=== PATIENT | male | born 1945 | race Caucasian/White ===

== ENCOUNTER 2016-12-01 13:46 | Emergency (ER) | payer MEDICARE, OTHER ==
[~2016-12-01 13:46] MED LIST: ACETAMINOPHEN325 MG PO; ASPIRIN CHEWABL81 MG PO; BUMEX1 MG PO; CEFDINIR300 MG PO; COLACE100 MG PO; COREG12.5 MG PO; DITROPAN5 MG PO; FLEET ENEMA133 ML PR; FLOMAX 0.4 MG0.4 MG PO; GLIPIZIDE 5 MG (5 MG PO; HUMULIN R100 UNIT/1 SQ; K-DUR20 MEQ PO; LACTINEX1 EACH PO; LAXATIVE SUPPOS10 MG PR; LIPITOR80 MG PO; MILK OF MA400 MG/5 M PO; MYLANTA PO; NEURONTIN100 M1 PO; NEURONTIN300 MG PO; NORCO 5-325 TA1 EACH PO; PLAVIX75 MG PO; PRILOSEC20 MG PO; PROTONIX 40MG T40 MG PO; XARELTO20 MG PO
[2016-12-01 15:24] LABS: BILIRUBIN NEGATIVE (NEGATIVE); BLOOD 3+ Ery/uL (NEGATIVE); CLARITY CLOUDY (CLEAR); COLOR RED (YELLOW); GLUCOSE (U) TRACE mg/dL (NORMAL); KETONE (U) 1+ (SMALL) mg/dL (NEGATIVE); LEUKOCYTES 2+ Leu/uL (NEGATIVE); NITRITE POSITIVE (NEGATIVE); PROTEIN 3+ mg/dL (NEGATIVE); SPECIFIC GRAVITY 1.015 (1.001-1.030); pH 6.5 (5.0-9.0)
[2016-12-01 15:27] LABS: BASOPHIL 0.2 % (0-2); EOSINOPHIL 1.6 % (0-7); HCT 31.1 % (42.0-52.0); HGB 9.9 g/dl (13.2-18.0); LYMPHOCYTE 6.7 % (15-48); MCH 27.3 pg (25.0-31.0); MCHC 31.8 g/dL (32.0-36.0); MCV 85.9 fL (78.0-100.0); MONOCYTE 5.3 % (0-12); MPV 9.9 fL (6.0-9.5); NEUTROPHIL 86.2 % (41-80); PLT 197 K/uL (150-400); RBC 3.62 M/uL (4.70-6.00); RDW 16.2 % (11.5-14.0)
[2016-12-01 15:37] LABS: PTT 44.5 SECONDS (23.2-31.4)
[2016-12-01 15:38] LABS: INR 3.46 (0.9-1.2)
[2016-12-01 15:44] LABS: ALBUMIN 3.7 g/dL (3.4-4.8); BILIRUBIN - TOTAL 0.4 mg/dL (0.1-1.0); CREATININE 1.2 mg/dL (0.7-1.2); GLOBULIN (CALCULATION) 3.2 g/dL (2.2-4.2); POTASSIUM 3.7 mmol/L (3.5-5.1); TOTAL PROTEIN 6.9 g/dL (6.4-8.3)
== END 2016-12-01 22:34 | disposition other institution (70) ==
LOC: FER 13:46
PROVIDERS: Emergency Medicine
DX: N39.0 Urinary tract infection, site not specified (principal); R31.9 Hematuria, unspecified; K59.00 Constipation, unspecified; J90 Pleural effusion, not elsewhere classified; K83.8 Other specified diseases of biliary tract; Z79.1 Long term (current) use of non-steroidal anti-inflammatories (NSAID); Z86.73 Personal history of transient ischemic attack (TIA), and cerebral infarction without residual deficits
CPT/HCPCS: 36415; 80053; 81003; 85025; 85610; 85730; J2270; J2405

== ENCOUNTER 2016-12-15 18:54 | Day surgery (SDCO) | payer MEDICARE, OTHER ==
[~2016-12-15] VITALS: Ht 172.7 cm; Wt 81.2 kg
[2016-12-15 21:36] LABS: BASOPHIL 0.2 % (0-2); EOSINOPHIL 4.2 % (0-7); HGB 8.7 g/dl (13.2-18.0); LYMPHOCYTE 14.4 % (15-48); MCH 26.4 pg (25.0-31.0); MCHC 31.1 g/dL (32.0-36.0); MCV 85.1 fL (78.0-100.0); MONOCYTE 7.9 % (0-12); MPV 9.6 fL (6.0-9.5); NEUTROPHIL 73.3 % (41-80); PLT 199 K/uL (150-400); RBC 3.29 M/uL (4.70-6.00); RDW 15.6 % (11.5-14.0); WBC 8.9 K/uL (4.0-10.5)
[2016-12-15 21:46] LABS: INR 1.8 (0.9-1.2); PROTHROMBIN TIME 20.3 SECONDS (11.7-14.0); PTT 44.5 SECONDS (23.2-31.4)
[2016-12-15 21:51] LABS: ALBUMIN 3.8 g/dL (3.4-4.8); BILIRUBIN - TOTAL 0.3 mg/dL (0.1-1.0); GLOBULIN (CALCULATION) 3.1 g/dL (2.2-4.2); MAGNESIUM 2.09 mg/dL (1.40-2.10); POTASSIUM 4.1 mmol/L (3.5-5.1); TOTAL PROTEIN 6.9 g/dL (6.4-8.3)
[2016-12-15 21:59] LABS: CKMB 1.94 ng/mL (0.97-4.94); TROPONIN T 0.035 ng/mL
[2016-12-15 22:00] LABS: FT4 (FREE T4) 1.63 ng/dL (0.93-1.70); TSH (THYROID STIM HORMONE) 0.708 uIU/mL (0.270-4.200)
[2016-12-15 22:53] LABS: BILIRUBIN NEGATIVE (NEGATIVE); BLOOD 3+ Ery/uL (NEGATIVE); COLOR YELLOW (YELLOW); GLUCOSE (U) NORMAL (NORMAL); KETONE (U) NEGATIVE (NEGATIVE); LEUKOCYTES 3+ Leu/uL (NEGATIVE); NITRITE NEGATIVE (NEGATIVE); PROTEIN 2+ mg/dL (NEGATIVE); UROBILINOGEN 0.2 mg/dL (0.2-1.0)
[2016-12-15 22:55] LABS: CLARITY HAZY (CLEAR)
[2016-12-15 22:57] LABS: BACTERIA 1+; SQUAMOUS EPITHELIAL CELLS RARE; URINARY WBC 20-50
[2016-12-16 05:49] LABS: CKMB 2.23 ng/mL (0.97-4.94); TROPONIN T 0.057 ng/mL
[2016-12-16 06:08] LABS: FOLIC ACID (SERUM) 14.5 ng/mL (5.6-45.8)
[2016-12-16 11:39] LABS: CKMB 2.22 ng/mL (0.97-4.94); TROPONIN T 0.045 ng/mL
== END 2016-12-17 13:46 | disposition home health service (06) ==
LOC: FER 18:54 → FTCU 12-16 02:15
PROVIDERS: Emergency Medicine Emergency Medical Services; Nurse Practitioner; ADMIT Internal Medicine
DX: I11.0 Hypertensive heart disease with heart failure (principal); I50.22 Chronic systolic (congestive) heart failure; N30.00 Acute cystitis without hematuria; I48.2 Chronic atrial fibrillation; I25.10 Atherosclerotic heart disease of native coronary artery without angina pectoris; I38 Endocarditis, valve unspecified; I69.922 Dysarthria following unspecified cerebrovascular disease; D50.9 Iron deficiency anemia, unspecified; E11.9 Type 2 diabetes mellitus without complications; E78.5 Hyperlipidemia, unspecified; E03.9 Hypothyroidism, unspecified; J90 Pleural effusion, not elsewhere classified; N40.0 Benign prostatic hyperplasia without lower urinary tract symptoms; Z87.891 Personal history of nicotine dependence; Z87.01 Personal history of pneumonia (recurrent); Z95.1 Presence of aortocoronary bypass graft; Z95.0 Presence of cardiac pacemaker; Z95.810 Presence of automatic (implantable) cardiac defibrillator; Z90.49 Acquired absence of other specified parts of digestive tract; Z79.82 Long term (current) use of aspirin; Z79.899 Other long term (current) drug therapy; Z98.890 Other specified postprocedural states
CPT/HCPCS: 36415; 70450; 71010; 71275; 73564; 80053; 81001; 82550; 82553; 82607; 82728; 82746; 82962; 83540; 83735; 83874; 83880; 84439; 84443; 84484; 85025; 85610; 85730; 87040; 87077; 87088; 87186; 93005; 96374; 97116; 97163; 97167; 97530; 97535; G0378; J1940; J2916; Q9967

== ENCOUNTER 2016-12-25 11:43 | Emergency (ER) | payer MEDICARE, OTHER ==
[2016-12-25 12:56] LABS: BASOPHIL 0.2 % (0-2); EOSINOPHIL 4.1 % (0-7); HCT 29.9 % (42.0-52.0); HGB 9.1 g/dl (13.2-18.0); LYMPHOCYTE 6.8 % (15-48); MCH 26.1 pg (25.0-31.0); MCHC 30.4 g/dL (32.0-36.0); MCV 85.9 fL (78.0-100.0); MONOCYTE 0.7 % (0-12); MPV 10.4 fL (6.0-9.5); NEUTROPHIL 88.2 % (41-80); PLT 150 K/uL (150-400); RBC 3.48 M/uL (4.70-6.00); RDW 16.6 % (11.5-14.0); WBC 4.1 K/uL (4.0-10.5)
[2016-12-25 13:08] LABS: LACTIC ACID 3.7 mmol/L (0.5-2.2)
[2016-12-25 13:11] LABS: ALBUMIN 3.9 g/dL (3.4-4.8); BILIRUBIN - TOTAL 0.5 mg/dL (0.1-1.0); CREATININE 1.2 mg/dL (0.7-1.2); GLOBULIN (CALCULATION) 2.7 g/dL (2.2-4.2); POTASSIUM 4.8 mmol/L (3.5-5.1); TOTAL PROTEIN 6.6 g/dL (6.4-8.3)
[2016-12-25 14:39] LABS: BILIRUBIN NEGATIVE (NEGATIVE); BLOOD 3+ Ery/uL (NEGATIVE); CLARITY HAZY (CLEAR); COLOR YELLOW (YELLOW); GLUCOSE (U) NORMAL (NORMAL); KETONE (U) NEGATIVE (NEGATIVE); LEUKOCYTES 3+ Leu/uL (NEGATIVE); NITRITE NEGATIVE (NEGATIVE); PROTEIN TRACE (LOW) mg/dL (NEGATIVE); UROBILINOGEN 0.2 mg/dL (0.2-1.0); pH 5.5 (5.0-9.0)
[2016-12-25 15:08] LABS: BACTERIA 3+; URINARY RBC TNTC; URINARY WBC TNTC
[2016-12-25 15:09] LABS: RENAL EPITHELIAL CELLS RARE; SQUAMOUS EPITHELIAL CELLS RARE
== END 2016-12-25 16:40 | disposition home or self-care (01) ==
LOC: FER 11:43
PROVIDERS: Internal Medicine
DX: N39.0 Urinary tract infection, site not specified (principal); J90 Pleural effusion, not elsewhere classified; J98.11 Atelectasis; Z86.73 Personal history of transient ischemic attack (TIA), and cerebral infarction without residual deficits; Z90.49 Acquired absence of other specified parts of digestive tract
CPT/HCPCS: 36415; 36600; 71010; 80053; 81001; 82150; 82803; 83605; 83690; 85025; 87040; 93005; J2543

== ENCOUNTER 2020-08-06 10:43 | Inpatient (IN) | payer MEDICARE, OTHER ==
[~2020-08-06 10:43] MED LIST changes: +AUGMENTIN250 MG PO; +BACITRACIN15 GM TOP; +BACLOFEN 10MG T10 MG PO; +BACTRIM DS TAB1 EACH PO; +CIPRO500 MG PO; +COZAAR50 MG PO; +FEOSOL325 MG PO; +FLEXERIL5 MG PO; +FLOMAX0.4 MG PO; +FUROSEMIDE 40MG40 MG PO; +GLUCOTROL5 MG PO; +KEFLEX250 MG PO; +LIPITOR40 MG PO; +MACROBID100 MG PO; +MELATONIN5 M2 PO; +NEURONTIN400 MG PO; +RESTORIL15 MG PO; +TAMSULOSIN HCL0.4 MG PO; +TRAZODONE 100M100 MG PO
[2020-08-06 11:28] LABS: BASOPHIL 0.7 % (0-2); EOSINOPHIL 2.6 % (0-7); HCT 39.5 % (42.0-52.0); HGB 12.5 g/dl (13.2-18.0); LYMPHOCYTE 15.5 % (15-48); MCH 29.8 pg (25.0-31.0); MCHC 31.6 g/dL (32.0-36.0); MONOCYTE 10.7 % (0-12); MPV 10.1 fL (6.0-9.5); NEUTROPHIL 70.1 % (41-80); NRBC 0; PLT 156 K/uL (150-400); RDW 12.5 % (11.5-14.0); WBC 7.2 K/uL (4.0-10.5)
[2020-08-06 11:30] LABS: BILIRUBIN NEGATIVE (NEGATIVE); BLOOD 3+ Ery/uL (NEGATIVE); CLARITY HAZY (CLEAR); COLOR YELLOW (YELLOW); GLUCOSE (U) TRACE mg/dL (NORMAL); LEUKOCYTES 3+ Leu/uL (NEGATIVE); NITRITE NEGATIVE (NEGATIVE); PROTEIN 2+ mg/dL (NEGATIVE); UROBILINOGEN 0.2 mg/dL (0.2-1.0)
[2020-08-06 11:43] LABS: URINARY RBC TNTC; URINARY WBC 20-50
[2020-08-06 11:44] LABS: BACTERIA TRACE
[2020-08-06 11:47] LABS: INR 2.1 (0.9-1.2); PROTHROMBIN TIME 22.4 SECONDS (11.4-13.6); PTT 45.6 SECONDS (22.2-34.7)
[2020-08-06 11:48] LABS: ALBUMIN 3.4 g/dL (3.4-5.0); BILIRUBIN - TOTAL 0.4 mg/dL (0.2-1.0); BUN/CREAT RATIO (CALC) 14.9 RATIO; CREATININE 0.87 mg/dL (0.67-1.17); GLOBULIN (CALCULATION) 2.9 g/dL; POTASSIUM 4.4 mmol/L (3.5-5.1); TOTAL PROTEIN 6.3 g/dL (6.4-8.2)
[2020-08-06 11:55] LABS: LACTIC ACID 1.3 mmol/L (0.4-1.9)
[2020-08-06 12:30] LABS: CORONAVIRUS 2019 SARS-COV-2 NEGATIVE (NEGATIVE); INFLUENZA A NAA NEGATIVE (NEGATIVE)
[2020-08-06] MEDS ORDERED: LASIX40 MG PO (15:18)
[2020-08-06] MEDS ORDERED: GLIPIZIDE5 MG PO ×2 (15:20→15:28)
[2020-08-06] MEDS ORDERED: CARVEDILOL12.5 MG PO (15:22)
[2020-08-06] MEDS ORDERED: COZAAR50 MG PO (15:23)
[2020-08-06] MEDS ORDERED: GABAPENTIN400 MG PO ×2 (15:25→15:26)
[2020-08-06] MEDS ORDERED: RESTORIL15 MG PO (15:27)
[2020-08-06] MEDS ORDERED: XARELTO10 MG PO (15:27)
[2020-08-06] MEDS ORDERED: BACLOFEN 10MG T10 MG PO (15:27)
[2020-08-06] MEDS ORDERED: LIPITOR40 MG PO (15:28)
[2020-08-06] MEDS ORDERED: FEOSOL325 M1 PO (15:31)
[2020-08-06] MEDS ORDERED: METAMUCIL1 DOSE PO (15:40)
[2020-08-06] MEDS ORDERED: MYRBETRIQ25 MG PO (15:44)
[2020-08-06 19:45] LABS: RETICULOCYTE COUNT 1.1 % (1.0-2.0)
[2020-08-06 19:58] LABS: IRON % SATURATION 17.9 %SAT (20-50)
[2020-08-06 20:25] LABS: FOLIC ACID (SERUM) 17.1 ng/mL (8.6-58.9)
[2020-08-07 07:03] LABS: BASOPHIL 0.2 % (0-2); EOSINOPHIL 0 % (0-7); HCT 37.3 % (42.0-52.0); HGB 11.9 g/dl (13.2-18.0); LYMPHOCYTE 11.2 % (15-48); MCH 29.7 pg (25.0-31.0); MCHC 31.9 g/dL (32.0-36.0); MONOCYTE 1.6 % (0-12); MPV 10.1 fL (6.0-9.5); NEUTROPHIL 86.5 % (41-80); NRBC 0; PLT 144 K/uL (150-400); RBC 4.01 M/uL (4.70-6.00); RDW 12.4 % (11.5-14.0); WBC 5.5 K/uL (4.0-10.5)
[2020-08-07 07:20] LABS: BUN/CREAT RATIO (CALC) 14.6 RATIO; CREATININE 0.89 mg/dL (0.67-1.17); PHOSPHORUS 3.2 mg/dL (2.6-4.7); POTASSIUM 4.5 mmol/L (3.5-5.1)
--- NOTE | 2020-08-07 16:24 | NUR ---
PT REPORTS HE LIVES ALONE AND HAS CAREGIVERS THAT COME 2X A DAY TO HELP HIM: HE REPORTS HE HAS [employer] AT HOME. FOR DME: HE HAS [employer] AND W/C AND SHOWER CHAIR. PT SAYS ONCE HE IS DISCHARGED HOME HE WILL BE PICKED UP BY HIS SON DAVE PANTOJA [phone] OR TINO PANTOAJ CHULA [phone]. CHOICE LETTER GIVEN HE WANTS CONTINUED HOME HEALTH WITH [facility] WHOM HE IS CURRENT WITH.
[2020-08-08 06:32] LABS: BASOPHIL 0.8 % (0-2); EOSINOPHIL 1.5 % (0-7); HCT 38.4 % (42.0-52.0); HGB 12.1 g/dl (13.2-18.0); LYMPHOCYTE 28.4 % (15-48); MCH 29.9 pg (25.0-31.0); MCHC 31.5 g/dL (32.0-36.0); MCV 94.8 fL (78.0-100.0); MONOCYTE 9.2 % (0-12); NEUTROPHIL 59.6 % (41-80); NRBC 0; PLT 164 K/uL (150-400); RBC 4.05 M/uL (4.70-6.00); RDW 12.8 % (11.5-14.0); WBC 7.5 K/uL (4.0-10.5)
[2020-08-08 06:55] LABS: CREATININE 1.07 mg/dL (0.67-1.17); MAGNESIUM 2.1 mg/dL (1.8-2.4); PHOSPHORUS 3.2 mg/dL (2.6-4.7); POTASSIUM 4.5 mmol/L (3.5-5.1)
--- NOTE | 2020-08-08 09:08 | NUR ---
GLUCOSE RECHECKED AFTER LAB OF GLU 48, IT IS NOW 183
--- NOTE | 2020-08-08 21:40 | NUR ---
Y1940 FSBG 52. PT ENCOURAGED TO EAT. PT ATE HAM SANDWICH, 240ML OF APPLE JUICE AND ORANGE SHERBET. FSBG 91 AT 2030.
[2020-08-09 02:55] LABS: BILIRUBIN NEGATIVE (NEGATIVE); BLOOD 3+ Ery/uL (NEGATIVE); CLARITY CLEAR (CLEAR); COLOR YELLOW (YELLOW); GLUCOSE (U) NORMAL (NORMAL); LEUKOCYTES 3+ Leu/uL (NEGATIVE); NITRITE NEGATIVE (NEGATIVE); PROTEIN NEGATIVE (NEGATIVE); UROBILINOGEN 0.2 mg/dL (0.2-1.0); pH 5.5 (5.0-9.0)
[2020-08-09 03:10] LABS: BACTERIA TRACE
[2020-08-09 03:11] LABS: MUCOUS TRACE; SQUAMOUS EPITHELIAL CELLS RARE
[2020-08-09] MEDS ORDERED: CEFDINIR300 MG PO ×2 (12:17→13:50)
--- NOTE | 2020-08-09 12:22 | NUR ---
S/W BERE VIA TELEPHONE WITH [employer] AND NOTIFIY HER THAT PT IS BEING D/C'D
== END 2020-08-09 13:10 | disposition home health service (06) | DRG 698 ==
LOC: FER 10:43 → FMS 13:59
PROVIDERS: Emergency Medicine; ADMIT Internal Medicine
DX: T83.518A Infection and inflammatory reaction due to other urinary catheter, initial encounter (principal); J18.9 Pneumonia, unspecified organism; N30.00 Acute cystitis without hematuria; I48.20 Chronic atrial fibrillation, unspecified; I50.42 Chronic combined systolic (congestive) and diastolic (congestive) heart failure; I69.351 Hemiplegia and hemiparesis following cerebral infarction affecting right dominant side; Y84.6 Urinary catheterization as the cause of abnormal reaction of the patient, or of later complication, without mention of misadventure at the time of the procedure; E11.649 Type 2 diabetes mellitus with hypoglycemia without coma; D50.9 Iron deficiency anemia, unspecified; I11.0 Hypertensive heart disease with heart failure; I25.5 Ischemic cardiomyopathy; Z20.822 Contact with and (suspected) exposure to COVID-19; E78.5 Hyperlipidemia, unspecified; I25.10 Atherosclerotic heart disease of native coronary artery without angina pectoris; N40.0 Benign prostatic hyperplasia without lower urinary tract symptoms; Z95.2 Presence of prosthetic heart valve; Z79.01 Long term (current) use of anticoagulants; Z95.0 Presence of cardiac pacemaker; Z88.2 Allergy status to sulfonamides
CPT/HCPCS: 36415; 70450; 71045; 80048; 80053; 81001; 82607; 82728; 82746; 83540; 83550; 83605; 83735; 83880; 84100; 84145; 84484; 85025; 85610; 85730; 87040; 87088; 94640; 94667; 94668; 97162; 97166; 97530-GP; 97535; J0456; J0696; J2930; J7030; J7040; J7050; U0002

== ENCOUNTER 2020-09-27 20:41 | Emergency (ER) | payer MEDICARE, OTHER ==
[~2020-09-27 20:41] MED LIST changes: +CARVEDILOL12.5 MG PO; +FEOSOL325 M1 PO; +GABAPENTIN400 MG PO; +GLIPIZIDE5 MG PO; +LASIX40 MG PO; +METAMUCIL1 DOSE PO; +MYRBETRIQ25 MG PO; +XARELTO10 MG PO
== END 2020-09-28 00:25 | disposition home or self-care (01) ==
LOC: FER 20:41
DX: M25.552 Pain in left hip (principal); M54.5 Low back pain; M25.551 Pain in right hip; E11.9 Type 2 diabetes mellitus without complications; E78.5 Hyperlipidemia, unspecified; I11.0 Hypertensive heart disease with heart failure; I50.9 Heart failure, unspecified; G20 Parkinson's disease; Z86.73 Personal history of transient ischemic attack (TIA), and cerebral infarction without residual deficits; Z79.899 Other long term (current) drug therapy; Z79.01 Long term (current) use of anticoagulants; W19.XXXA Unspecified fall, initial encounter; Y92.009 Unspecified place in unspecified non-institutional (private) residence as the place of occurrence of the external cause
CPT/HCPCS: 72110; 93005

== ENCOUNTER 2021-04-26 17:19 | Emergency (ER) | payer MEDICARE, OTHER ==
[2021-04-26 18:17] LABS: BILIRUBIN NEGATIVE (NEGATIVE); BLOOD 2+ Ery/uL (NEGATIVE); CLARITY CLEAR (CLEAR); COLOR YELLOW (YELLOW); GLUCOSE (U) NORMAL (NORMAL); LEUKOCYTES 2+ Leu/uL (NEGATIVE); NITRITE NEGATIVE (NEGATIVE); PROTEIN NEGATIVE (NEGATIVE); UROBILINOGEN 0.2 mg/dL (0.2-1.0)
[2021-04-26 18:25] LABS: BACTERIA 2+
[2021-04-26] MEDS ORDERED: MACROBID100 MG PO (18:31)
== END 2021-04-26 19:00 | disposition home or self-care (01) ==
LOC: FER 17:19
PROVIDERS: Nurse Practitioner Family
DX: T83.018A Breakdown (mechanical) of other urinary catheter, initial encounter (principal); N39.0 Urinary tract infection, site not specified; E11.9 Type 2 diabetes mellitus without complications; I25.2 Old myocardial infarction; I10 Essential (primary) hypertension; Z86.73 Personal history of transient ischemic attack (TIA), and cerebral infarction without residual deficits
CPT/HCPCS: 81001; 87076; 87088; 87186

== ENCOUNTER 2021-05-09 10:42 | Emergency (ER) | payer MEDICARE, OTHER | END 2021-05-09 12:32 | disposition home or self-care (01) | LOC: FER 10:42 | DX: S42.035A Nondisplaced fracture of lateral end of left clavicle, initial encounter for closed fracture (principal); M19.012 Primary osteoarthritis, left shoulder; Z88.2 Allergy status to sulfonamides; W18.30XA Fall on same level, unspecified, initial encounter; Y92.009 Unspecified place in unspecified non-institutional (private) residence as the place of occurrence of the external cause | CPT/HCPCS: 73030; 73060 ==

== ENCOUNTER 2021-05-17 15:57 | Day surgery (SDCO) | payer MEDICARE, OTHER ==
[~2021-05-17] VITALS: Ht 172.7 cm; Wt 78.6 kg
[2021-05-17 17:28] LABS: BASOPHIL 0.4 % (0-2); EOSINOPHIL 3.5 % (0-7); HGB 12.5 g/dl (13.2-18.0); LYMPHOCYTE 21.7 % (15-48); MCH 28.6 pg (25.0-31.0); MCHC 32.1 g/dL (32.0-36.0); MCV 89.2 fL (78.0-100.0); MONOCYTE 10.3 % (0-12); MPV 10.7 fL (6.0-9.5); NEUTROPHIL 63.8 % (41-80); NRBC 0; PLT 157 K/uL (150-400); RBC 4.37 M/uL (4.70-6.00); RDW 13.2 % (11.5-14.0); WBC 7.2 K/uL (4.0-10.5)
[2021-05-17 17:28] LABS: BILIRUBIN NEGATIVE (NEGATIVE); BLOOD 3+ Ery/uL (NEGATIVE); COLOR YELLOW (YELLOW); GLUCOSE (U) NORMAL (NORMAL); LEUKOCYTES 3+ Leu/uL (NEGATIVE); NITRITE NEGATIVE (NEGATIVE); PROTEIN 1+ mg/dL (NEGATIVE); SPECIFIC GRAVITY 1.015 (1.001-1.030); UROBILINOGEN 0.2 mg/dL (0.2-1.0)
[2021-05-17 17:40] LABS: CLARITY HAZY (CLEAR)
[2021-05-17 17:41] LABS: BACTERIA 3+; RENAL EPITHELIAL CELLS RARE; URINARY RBC 20-50; URINARY WBC 20-50
[2021-05-17 17:44] LABS: ALBUMIN 3.4 g/dL (3.4-5.0); BILIRUBIN - TOTAL 0.4 mg/dL (0.2-1.0); BUN/CREAT RATIO (CALC) 16.7 RATIO; CREATININE 0.9 mg/dL (0.67-1.17); GLOBULIN (CALCULATION) 3.4 g/dL; POTASSIUM 4.2 mmol/L (3.5-5.1); TOTAL PROTEIN 6.8 g/dL (6.4-8.2)
[2021-05-17] MEDS ORDERED: IRON325 M1 PO (21:04)
[2021-05-17] MEDS ORDERED: NEURONTIN400 MG PO (21:12)
[2021-05-18 06:59] LABS: BASOPHIL 0.4 % (0-2); HGB 11.3 g/dl (13.2-18.0); LYMPHOCYTE 26.3 % (15-48); MCHC 32.3 g/dL (32.0-36.0); MPV 9.9 fL (6.0-9.5); NRBC 0; PLT 132 K/uL (150-400); RBC 3.89 M/uL (4.70-6.00); RDW 13.4 % (11.5-14.0); WBC 6.9 K/uL (4.0-10.5)
[2021-05-18 07:19] LABS: BUN/CREAT RATIO (CALC) 16.1 RATIO; CREATININE 0.93 mg/dL (0.67-1.17); POTASSIUM 3.9 mmol/L (3.5-5.1)
--- NOTE | 2021-05-18 15:03 | NUR ---
TC TO SON, DAVE, WHO IS ALSO POA. DAVE WANTS HIS FATHER TO GO TO [facility]. SENT REFERRAL TO [facility].
[2021-05-19 07:12] LABS: BASOPHIL 0.3 % (0-2); EOSINOPHIL 3.8 % (0-7); HCT 38.8 % (42.0-52.0); HGB 12.3 g/dl (13.2-18.0); LYMPHOCYTE 20.9 % (15-48); MCH 29.1 pg (25.0-31.0); MCHC 31.7 g/dL (32.0-36.0); MCV 91.7 fL (78.0-100.0); MONOCYTE 10.4 % (0-12); MPV 9.9 fL (6.0-9.5); NEUTROPHIL 64.3 % (41-80); NRBC 0; PLT 138 K/uL (150-400); RBC 4.23 M/uL (4.70-6.00); RDW 13.3 % (11.5-14.0)
[2021-05-19 07:58] LABS: ALBUMIN 3.2 g/dL (3.4-5.0); BILIRUBIN - TOTAL 0.3 mg/dL (0.2-1.0); BUN/CREAT RATIO (CALC) 17.4 RATIO; CREATININE 0.92 mg/dL (0.67-1.17); GLOBULIN (CALCULATION) 3.2 g/dL; POTASSIUM 4.4 mmol/L (3.5-5.1); TOTAL PROTEIN 6.4 g/dL (6.4-8.2)
[2021-05-19] MEDS ORDERED: LACTOBACILLUS1 EACH PO (10:42)
[2021-05-19] MEDS ORDERED: KEFLEX250 MG PO (10:42)
--- NOTE | 2021-05-19 11:26 | NUR ---
GUST[facility]O WITH [facility] NOTIFIED ME THAT PT HAS BEEN ACCEPTED. ADVISED HE HAS HIS COVID VACCINE OF X-BOLT [facility] ON 12/18/2020.
--- NOTE | 2021-05-19 14:34 | NUR ---
SPOKE WITH PT. HE IS IN AGREEMENT TO GO TO [facility]. I ADVISED HIM THAT HIS CAREGIVER, VALERIE, WOULD BE OVER TO THE FACILITY TO VISIT WITH HIM AND BRING HIS LAPTOP. PT. ACKNOWLEDGED UNDERSTANDING.
--- NOTE | 2021-05-19 17:01 | NUR ---
TC TO SON, AND DAVE GALEANO. ADVISED THAT HIS FATHER HAS BEEN ACCEPTED AT [facility]. ALSO ADVISED HIM OF VISITING HOURS AND THAT HIS CAREGIVER, MARILYN WOULD BE TAKING HIS LAPTOP TO HIM. SON WAS APPRECIATIVE OF CALL.
[2021-05-19] MEDS ORDERED: GABAPENTIN400 MG PO (17:49)
== END 2021-05-19 18:06 ==
LOC: FER 15:57 → FMS 19:24
PROVIDERS: Internal Medicine; Nurse Practitioner; ADMIT Allergy & Immunology
DX: N39.0 Urinary tract infection, site not specified (principal); I11.0 Hypertensive heart disease with heart failure; I50.22 Chronic systolic (congestive) heart failure; E11.40 Type 2 diabetes mellitus with diabetic neuropathy, unspecified; I48.91 Unspecified atrial fibrillation; I25.5 Ischemic cardiomyopathy; I25.10 Atherosclerotic heart disease of native coronary artery without angina pectoris; J44.9 Chronic obstructive pulmonary disease, unspecified; I69.391 Dysphagia following cerebral infarction; R13.10 Dysphagia, unspecified; E78.5 Hyperlipidemia, unspecified; R29.6 Repeated falls; M19.90 Unspecified osteoarthritis, unspecified site; Z79.01 Long term (current) use of anticoagulants; Z79.84 Long term (current) use of oral hypoglycemic drugs; Z79.899 Other long term (current) drug therapy; Z20.822 Contact with and (suspected) exposure to COVID-19; Z95.810 Presence of automatic (implantable) cardiac defibrillator; Z90.49 Acquired absence of other specified parts of digestive tract
CPT/HCPCS: 36415; 80048; 80053; 81001; 82962; 83605; 83735; 85025; 94010; 97163; 97166; 97530-GP; 97535; G0378; J0696; J7030; U0002

== ENCOUNTER 2021-08-06 15:52 | Emergency (ER) | payer MEDICARE, OTHER ==
[~2021-08-06 15:52] MED LIST changes: +IRON325 M1 PO; +LACTOBACILLUS1 EACH PO
[2021-08-06 18:10] LABS: BILIRUBIN NEGATIVE (NEGATIVE); BLOOD 2+ Ery/uL (NEGATIVE); CLARITY CLEAR (CLEAR); COLOR YELLOW (YELLOW); GLUCOSE (U) NORMAL (NORMAL); LEUKOCYTES 1+ Leu/uL (NEGATIVE); NITRITE POSITIVE (NEGATIVE); PROTEIN NEGATIVE (NEGATIVE); UROBILINOGEN 0.2 mg/dL (0.2-1.0)
[2021-08-06 18:20] LABS: BACTERIA 3+
[2021-08-06 18:22] LABS: URINARY WBC RARE
== END 2021-08-06 18:19 | disposition home or self-care (01) ==
LOC: FER 15:52
PROVIDERS: Emergency Medicine
DX: T83.84XA Pain due to genitourinary prosthetic devices, implants and grafts, initial encounter (principal); Z88.2 Allergy status to sulfonamides; Y84.6 Urinary catheterization as the cause of abnormal reaction of the patient, or of later complication, without mention of misadventure at the time of the procedure; Y92.099 Unspecified place in other non-institutional residence as the place of occurrence of the external cause
CPT/HCPCS: 81001

== ENCOUNTER 2021-08-23 14:57 | Inpatient (IN) | payer MEDICARE, OTHER ==
[~2021-08-23] VITALS: Ht 172.7 cm; Wt 78.6 kg
[2021-08-23 15:48] LABS: BASOPHIL 0.5 % (0-2); EOSINOPHIL 1.9 % (0-7); HCT 40.2 % (42.0-52.0); HGB 13.3 g/dl (13.2-18.0); LYMPHOCYTE 20.7 % (15-48); MCH 29.8 pg (25.0-31.0); MCHC 33.1 g/dL (32.0-36.0); MCV 89.9 fL (78.0-100.0); MONOCYTE 11.1 % (0-12); MPV 10.6 fL (6.0-9.5); NEUTROPHIL 65.3 % (41-80); NRBC 0; PLT 136 K/uL (150-400); RBC 4.47 M/uL (4.70-6.00); RDW 13.2 % (11.5-14.0); WBC 7.9 K/uL (4.0-10.5)
[2021-08-23 15:58] LABS: INR 1.9 (0.9-1.2); PTT 34.5 SECONDS (24.4-34.7)
[2021-08-23 16:02] LABS: CREATININE 0.89 mg/dL (0.67-1.17); POTASSIUM 4.1 mmol/L (3.5-5.1)
[2021-08-23 17:30] LABS: BILIRUBIN NEGATIVE (NEGATIVE); BLOOD 1+ Ery/uL (NEGATIVE); CLARITY CLEAR (CLEAR); COLOR YELLOW (YELLOW); GLUCOSE (U) NORMAL (NORMAL); LEUKOCYTES 3+ Leu/uL (NEGATIVE); NITRITE POSITIVE (NEGATIVE); PROTEIN NEGATIVE (NEGATIVE); SPECIFIC GRAVITY 1.025 (1.001-1.030); UROBILINOGEN 0.2 mg/dL (0.2-1.0)
[2021-08-23 17:36] LABS: BACTERIA 3+; URINARY WBC TNTC
[2021-08-23 17:37] LABS: AMORPHOUS URATES CRYSTALS MODERATE; MUCOUS TRACE
[2021-08-23] MEDS ORDERED: NEURONTIN400 MG PO ×2 (19:23→19:26)
[2021-08-24 06:36] LABS: BASOPHIL 0.7 % (0-2); HGB 11.3 g/dl (13.2-18.0); LYMPHOCYTE 23.3 % (15-48); MCH 29.4 pg (25.0-31.0); MCHC 32.3 g/dL (32.0-36.0); MCV 90.9 fL (78.0-100.0); MONOCYTE 12.8 % (0-12); MPV 10.8 fL (6.0-9.5); NRBC 0; PLT 106 K/uL (150-400); RBC 3.85 M/uL (4.70-6.00); RDW 13.6 % (11.5-14.0); WBC 8.6 K/uL (4.0-10.5)
[2021-08-24 06:45] LABS: INR 3.01 (0.9-1.2); PROTHROMBIN TIME 30.2 SECONDS (11.8-13.4)
[2021-08-24 07:01] LABS: BUN/CREAT RATIO (CALC) 17.6 RATIO; CREATININE 1.02 mg/dL (0.67-1.17)
[2021-08-24] MEDS ORDERED: DITROPAN5 MG PO (12:07)
[2021-08-24] MEDS ORDERED: ASCORBIC ACID500 MG PO (12:10)
[2021-08-24] MEDS ORDERED: RESTORIL15 MG PO (12:10)
[2021-08-25 06:26] LABS: BASOPHIL 0.5 % (0-2); EOSINOPHIL 5.7 % (0-7); HCT 33.2 % (42.0-52.0); HGB 10.7 g/dl (13.2-18.0); LYMPHOCYTE 25.5 % (15-48); MCH 29.6 pg (25.0-31.0); MCHC 32.2 g/dL (32.0-36.0); MCV 91.7 fL (78.0-100.0); MONOCYTE 12.6 % (0-12); MPV 10.5 fL (6.0-9.5); NEUTROPHIL 55.5 % (41-80); NRBC 0; RBC 3.62 M/uL (4.70-6.00); RDW 13.4 % (11.5-14.0)
[2021-08-25 06:33] LABS: INR 3.69 (0.9-1.2); PROTHROMBIN TIME 35.5 SECONDS (11.8-13.4)
[2021-08-25 06:34] LABS: PTT 57.2 SECONDS (24.4-34.7)
[2021-08-25 06:39] LABS: BUN/CREAT RATIO (CALC) 15.6 RATIO; CREATININE 1.09 mg/dL (0.67-1.17); MAGNESIUM 1.7 mg/dL (1.8-2.4); POTASSIUM 4.3 mmol/L (3.5-5.1)
[2021-08-25 07:19] LABS: PLT 97 K/uL (150-400)
== END 2021-08-25 20:41 | disposition other institution (70) | DRG 536 ==
LOC: FER 14:57 → FMS 16:19
PROVIDERS: Internal Medicine; Nurse Practitioner; ADMIT Internal Medicine
DX: S72.125A Nondisplaced fracture of lesser trochanter of left femur, initial encounter for closed fracture (principal); T83.511A Infection and inflammatory reaction due to indwelling urethral catheter, initial encounter; I50.22 Chronic systolic (congestive) heart failure; I48.20 Chronic atrial fibrillation, unspecified; N30.00 Acute cystitis without hematuria; I69.354 Hemiplegia and hemiparesis following cerebral infarction affecting left non-dominant side; Z20.822 Contact with and (suspected) exposure to COVID-19; W01.0XXA Fall on same level from slipping, tripping and stumbling without subsequent striking against object, initial encounter; J44.9 Chronic obstructive pulmonary disease, unspecified; I11.0 Hypertensive heart disease with heart failure; I25.10 Atherosclerotic heart disease of native coronary artery without angina pectoris; R29.6 Repeated falls; E78.5 Hyperlipidemia, unspecified; I69.391 Dysphagia following cerebral infarction; R13.10 Dysphagia, unspecified; I25.5 Ischemic cardiomyopathy; E11.40 Type 2 diabetes mellitus with diabetic neuropathy, unspecified; M19.90 Unspecified osteoarthritis, unspecified site; Z95.810 Presence of automatic (implantable) cardiac defibrillator; Z95.1 Presence of aortocoronary bypass graft; Z90.79 Acquired absence of other genital organ(s); Z95.2 Presence of prosthetic heart valve; Z95.5 Presence of coronary angioplasty implant and graft; Z90.49 Acquired absence of other specified parts of digestive tract; Z88.2 Allergy status to sulfonamides; Z79.899 Other long term (current) drug therapy; Z79.01 Long term (current) use of anticoagulants; Z79.84 Long term (current) use of oral hypoglycemic drugs
CPT/HCPCS: 36415; 70450; 73502; 73700; 80048; 81001; 83735; 85025; 85610; 85730; 87088; 94010; G0378; J0696; J1170; U0002

== ENCOUNTER 2021-12-06 10:21 | Emergency (ER) | payer MEDICARE, OTHER ==
[~2021-12-06 10:21] MED LIST changes: +ASCORBIC ACID500 MG PO; +DULCOLAX STOOL100 MG PO; +FIBER PO; +MYSOLINE50 MG PO
[2021-12-06 11:54] LABS: BILIRUBIN 1+ mg/dL (NEGATIVE); BLOOD 3+ Ery/uL (NEGATIVE); GLUCOSE (U) TRACE mg/dL (NORMAL); LEUKOCYTES 3+ Leu/uL (NEGATIVE); NITRITE POSITIVE (NEGATIVE); PROTEIN 3+ mg/dL (NEGATIVE); UROBILINOGEN >=8.0 mg/dL (0.2-1.0); pH 6.5 (5.0-9.0)
[2021-12-06 12:00] LABS: CLARITY CLOUDY (CLEAR); COLOR RED (YELLOW)
[2021-12-06 12:05] LABS: URINARY RBC TNTC
[2021-12-06] MEDS ORDERED: CEPHALEXIN500 MG PO (12:19)
== END 2021-12-06 14:29 | disposition home or self-care (01) ==
LOC: FER 10:21
PROVIDERS: Emergency Medicine
DX: T83.098A Other mechanical complication of other urinary catheter, initial encounter (principal); N39.0 Urinary tract infection, site not specified; J44.9 Chronic obstructive pulmonary disease, unspecified; I10 Essential (primary) hypertension; E11.9 Type 2 diabetes mellitus without complications; G20 Parkinson's disease; Z79.02 Long term (current) use of antithrombotics/antiplatelets
CPT/HCPCS: 81001

== ENCOUNTER 2022-01-22 19:21 | Emergency (ER) | payer MEDICARE, OTHER ==
[~2022-01-22 19:21] MED LIST changes: +CEPHALEXIN500 MG PO
[2022-01-22 20:08] LABS: BILIRUBIN NEGATIVE (NEGATIVE); BLOOD 3+ Ery/uL (NEGATIVE); CLARITY CLEAR (CLEAR); COLOR YELLOW (YELLOW); GLUCOSE (U) NORMAL (NORMAL); LEUKOCYTES 2+ Leu/uL (NEGATIVE); NITRITE NEGATIVE (NEGATIVE); PROTEIN 3+ mg/dL (NEGATIVE); UROBILINOGEN 0.2 mg/dL (0.2-1.0)
[2022-01-22 20:18] LABS: BACTERIA 2+
[2022-01-22 20:19] LABS: AMORPHOUS URATES CRYSTALS MODERATE; MUCOUS TRACE
[2022-01-22 20:19] LABS: BASOPHIL 0.4 % (0-2); EOSINOPHIL 3.3 % (0-7); HCT 38.4 % (42.0-52.0); LYMPHOCYTE 16.2 % (15-48); MCH 27.3 pg (25.0-31.0); MCHC 31.3 g/dL (32.0-36.0); MCV 87.5 fL (78.0-100.0); MONOCYTE 10.9 % (0-12); MPV 10.6 fL (6.0-9.5); NRBC 0; PLT 162 K/uL (150-400); RBC 4.39 M/uL (4.70-6.00); RDW 16.7 % (11.5-14.0); WBC 8.2 K/uL (4.0-10.5)
[2022-01-22 20:32] LABS: ALBUMIN 3.9 g/dL (3.4-5.0); BILIRUBIN - TOTAL 0.5 mg/dL (0.2-1.0); BUN/CREAT RATIO (CALC) 16.4 RATIO; CREATININE 1.16 mg/dL (0.67-1.17); GLOBULIN (CALCULATION) 3.4 g/dL; POTASSIUM 3.8 mmol/L (3.5-5.1); TOTAL PROTEIN 7.3 g/dL (6.4-8.2)
[2022-01-22] MEDS ORDERED: CEFDINIR300 MG PO ×2 (21:21→21:25)
[2022-01-22] MEDS ORDERED: SENNA PLUS 8.61 EACH PO ×2 (21:21→21:25)
== END 2022-01-22 21:50 | disposition home or self-care (01) ==
LOC: FER 19:21
PROVIDERS: Internal Medicine
DX: N39.0 Urinary tract infection, site not specified (principal); L89.312 Pressure ulcer of right buttock, stage 2; L89.151 Pressure ulcer of sacral region, stage 1; I69.954 Hemiplegia and hemiparesis following unspecified cerebrovascular disease affecting left non-dominant side; E11.9 Type 2 diabetes mellitus without complications; I10 Essential (primary) hypertension; Z88.2 Allergy status to sulfonamides; Z79.84 Long term (current) use of oral hypoglycemic drugs
CPT/HCPCS: 36415; 80053; 81001; 84145; 85025; 87088; 96374; J0696

== ENCOUNTER 2022-02-05 18:39 | Emergency (ER) | payer MEDICARE, OTHER ==
[~2022-02-05 18:39] MED LIST changes: +SENNA PLUS 8.61 EACH PO
== END 2022-02-05 18:55 | disposition home or self-care (01) ==
LOC: FER 18:39
DX: R33.9 Retention of urine, unspecified (principal); I10 Essential (primary) hypertension; E11.9 Type 2 diabetes mellitus without complications; Z88.2 Allergy status to sulfonamides
CPT/HCPCS: 99283